=== PATIENT | male | born 1935 | race Caucasian/White ===

== ENCOUNTER 2022-07-23 09:55 | Outpatient (RCR) | payer MEDICARE, SELFPAY | END 2022-08-22 23:59 | disposition home or self-care (01) | LOC: CHSWOUND 09:55 | PROVIDERS: PCP Family Medicine; Visit Provider Nurse Practitioner Acute Care | DX: L89.153 Pressure ulcer of sacral region, stage 3 (principal); E11.621 Type 2 diabetes mellitus with foot ulcer; L97.411 Non-pressure chronic ulcer of right heel and midfoot limited to breakdown of skin; E11.9 Type 2 diabetes mellitus without complications; E66.01 Morbid (severe) obesity due to excess calories; E03.9 Hypothyroidism, unspecified; E04.9 Nontoxic goiter, unspecified; M10.9 Gout, unspecified; N39.42 Incontinence without sensory awareness | CPT/HCPCS: 99213; G0463 ==

== ENCOUNTER 2022-08-09 13:06 | Emergency (ER) | payer MEDICARE, SELFPAY ==
[2022-08-09 13:17] VITALS: BP 105/65; PULSE 86; RESP 18; TEMP 36.8; O2SAT 98
--- NOTE | 2022-08-09 17:22 | ED.GENADULT ---
HPI - General Adult General Chief complaint: Skin/Abscess/Foreign Body Stated complaint: abcess on chest Time Seen by Provider: 08/09/22 17:02 Source: patient and family Mode of arrival: wheelchair Limitations: no limitations History of Present Illness HPI narrative: This is an 87-year-old male with past medical history of diabetes, hypertension presents for chief complaint of skin lesion on Saturday 4 days ago. Sent from his family doctor for further evaluation and treatment of abscess in the ED. reports the lesion is located in the upper right chest and is painful to the touch. There is surrounding redness. otherwise he is in no pain. Denies any fevers, chills. Denies chest pain, shortness of breath, abdominal pain. Related Data Home Medications Medication Instructions Recorded Confirmed allopurinol 300 mg tablet 300 mg PO DAILY 07/16/22 08/09/22 gabapentin 800 mg tablet 800 mg PO BID 07/16/22 08/09/22 glipizide 5 mg tablet 5 mg PO DAILY 07/16/22 08/09/22 methimazole 10 mg tablet 10 mg PO .COMPLEX 07/16/22 08/09/22 simvastatin 20 mg tablet 20 mg PO DAILY 07/16/22 08/09/22 sitagliptin phosphate 100 mg 100 mg PO DAILY 07/16/22 08/09/22 tablet (Januvia) Allergies Allergy/AdvReac Type Severity Reaction Status Date / Time No Known Allergies Allergy Mild Unverified 08/20/16 15:10 Review of Systems Review of Systems: CONSTITUTIONAL: Denies fever, chills, or sweats. EYES: Denies visual changes, redness, or discharge. ENT: Denies rhinorrhea, congestion, sore throat, or otalgia. CARDIOVASCULAR: Denies chest pain, palpitations, or edema. RESPIRATORY: Denies cough or dyspnea. GASTROINTESTINAL: Denies abdominal pain, nausea, vomiting, or diarrhea. GENITOURINARY: Denies dysuria or hematuria. SKIN: Reports skin lesion with surrounding redness. denies rash or itching. MUSCULOSKELETAL: Denies back pain, joint pain, or myalgia. NEUROLOGIC: Denies headache, numbness, dizziness, or weakness. PSYCHIATRIC: Denies anxiety or depression. PMFSH Social History Social History Smoking status: Never smoker Alcohol intake: never Exam Narrative: GENERAL: Well-appearing, well-nourished, and in no acute distress. HEAD: Normocephalic, atraumatic. EYES: PERRLA and EOMI. ENT: Nares clear, no rhinorrhea or epistaxis. Mucous membranes moist. Oropharynx without tonsillar hypertrophy exudate or other lesions. NECK: Supple. No adenopathy or masses. CHEST: No respiratory distress. Clear to auscultation. No wheezes rales or rhonchi HEART: Regular rate and rhythm. No murmur heard. Normal peripheral pulses. ABDOMEN: Soft, nontender, nondistended, normal active bowel sounds. EXTREMITIES: Normal range of motion. No edema. SKIN: 3 cm abscess located in the right upper thorax. There is induration and fluctuance present. Wound is currently draining purulent material during exam. There is surrounding redness and warmth. Tender to palpation in the area. Secondary lesion on the right side of the neck with no surrounding redness, fluctuance, induration, drainage. no other lesions noted. warm, dry, no rash. NEURO: Alert and oriented x3. No focal deficits. PSYCH: Normal mood and affect. Course Vital Signs Vital signs: Vital Signs Temperature 98.2 F 08/09/22 13:17 Pulse Rate 86 08/09/22 13:17 Respiratory Rate 18 08/09/22 13:17 Blood Pressure 105/65 08/09/22 13:17 Pulse Oximetry 98 08/09/22 13:17 Oxygen Delivery Room Air 08/09/22 13:17 Temperature 98.2 F 08/09/22 13:17 Pulse Rate 86 08/09/22 13:17 Respiratory Rate 18 08/09/22 13:17 Blood Pressure 105/65 08/09/22 13:17 Pulse Oximetry 98 08/09/22 13:17 Oxygen Delivery Room Air 08/09/22 13:17 Procedures Abscess I/D chest: Date of Incision: 08/09/22 Time of Incision: 15:45 Side (if applicable): right Local Anesthetic: lidocaine 1% Amount of anesthesia used (mL): 10 Technique: needle aspiration, incised wit
[2022-08-09 18:21] LABS: Basophils Absolute Auto 0.1 K/mm3 (0.0-0.1); Basophils Percent Auto 0.9 % (0.2-1.2); Eosinophils Absolute Auto 0.6 K/mm3 (0-0.3); Eosinophils Percent Auto 7.8 % (0-4.4); Hematocrit 35.3 % (42.0-52.0); Hemoglobin 11.3 g/dL (14.0-18.0); Immature Granulocyte Absolute 0.03 K/mm3 (0.00-0.031); Immature Granulocyte Percent A 0.4 % (0-0.5); Lymphocytes Absolute Auto 1.64 K/mm3 (0.9-3.2); Lymphocytes Percent Auto 19.9 % (18.3-44.2); Mean Corpuscular Hemoglobin 33.7 pg (26-34); Mean Corpuscular Volume 105.4 fl (80-100); Mean Platelet Volume 12.1 fl (7.4-10.4); Monocytes Percent Auto 11.7 % (2.6-8.5); Neutrophils Absolute Auto 4.9 K/mm3 (1.3-6.7); Neutrophils Percent Auto 59.3 % (45.5-73.1); Nucleated Red Blood Cells Perc 0.2 % (0.0-0.2); Platelet Count Result 189 k/mm3 (150-375); Red Blood Count 3.35 M/mm3 (4.6-6.20); White Blood Count 8.2 K/mm3 (4.5-10.0)
[2022-08-09 18:37] LABS: Alanine Aminotransferase 14 U/L (6-50); Albumin Level 3.9 g/dL (3.5-5.1); Alkaline Phosphatase 86 U/L (38-126); Anion Gap 5 mmol/L (8-16); Aspartate Amino Transferase 23 U/L (17-59); Bilirubin,Total 0.6 mg/dL (0.2-1.3); Blood Urea Nitrogen 23 mg/dL (9-20); Carbon Dioxide 32 mmol/L (22-30); Chloride 104 mmol/L (98-107); Estimated CRCL calculation 37 ml/min; Estimated Glomerular Filt Rate 44; Glucose 129 mg/dL (65-110); Potassium 4.7 mmol/L (3.4-5.0); Sodium 141 mmol/L (137-145)
[2022-08-09 18:41] LABS: CRP 2.9 mg/dL (<1.0)
[2022-08-09 18:50] LABS: Platelet Estimate Adequate (Adequate); Schistocytes None Seen (NORMAL)
[2022-08-09 18:51] LABS: Anisocytosis 2+ (NORMAL); Hypochromasia 1+ (NORMAL)
[2022-08-09] MEDS: SULFAMETHOXAZOLE/TRIMETHOPRIM 800/160 MG DS TABLET 1 TAB PO (20:23)
[2022-08-09] MEDS: CEPHALEXIN 500 MG CAPSULE PO (20:23)
[2022-08-09 20:34] VITALS: BP 123/73; PULSE 96; RESP 12; O2SAT 96
== END 2022-08-09 20:37 | disposition home or self-care (01) ==
PROVIDERS: Emergency Provider Physician Assistant; PCP Family Medicine
DX: L02.213 Cutaneous abscess of chest wall (principal); L03.313 Cellulitis of chest wall; I10 Essential (primary) hypertension; E11.9 Type 2 diabetes mellitus without complications; Z79.84 Long term (current) use of oral hypoglycemic drugs
CPT/HCPCS: 10061; 36415; 80053; 85025; 86140; 87070; 87147; 87181; 87186; 87205; 99214; 99283; A9270; G0463; J2704

== ENCOUNTER 2022-08-15 12:29 | Outpatient (RCR) | payer MEDICARE, SELFPAY ==
[2022-08-09 13:38] VITALS: BMI 35.0
== END 2022-10-22 10:54 | disposition home or self-care (01) ==
LOC: ANHWOC 12:29
PROVIDERS: PCP Family Medicine; Visit Provider Family Medicine
DX: L89.90 Pressure ulcer of unspecified site, unspecified stage (principal)
CPT/HCPCS: 87070; 87147; 87181; 87186; 87205; 99214; A9270; G0463

== ENCOUNTER 2023-02-14 14:17 | Inpatient (IN) | payer MEDICARE, SELFPAY ==
[2023-02-14] VITALS (27 sets, daily range): BP systolic 92–112; BP diastolic 48–68; PULSE 83–98; RESP 12–24; TEMP 36.4–36.6; O2SAT 79–100; BMI 36.3
--- NOTE | ~2023-02-14 | US_ITS ---
EXAMINATION: US renal BI DATE: 02/16/2023 13:25 INDICATION: Acute kidney injury TECHNIQUE: Multiple grayscale and Doppler ultrasound images of the kidneys were obtained. COMPARISON: 09/23/2016 FINDINGS: The right kidney measures 9.4 x 4.6 x 3.8 cm. The left kidney measures 8.6 x 4.5 x 3.6 cm. The kidneys demonstrate normal parenchymal echogenicity. There is no hydronephrosis. The bladder is n ormal. IMPRESSION: 1. Moderate atrophy of the kidneys without hydronephrosis. Reviewed, dictated and finalized at location A.
--- NOTE | ~2023-02-14 | CT_ITS ---
EXAMINATION: CT abdomen pelvis w con DATE: 02/14/2023 19:48 INDICATION: Altered mental status TECHNIQUE: Computed tomography (CT) of the abdomen and pelvis was performed with 100 mL Omnipaque-350 intravenous contrast. Automated exposure control and iterative reconstruction technique were employe d. The dose-length product was 1514.06 mGy-cm. COMPARISON: X-ray chest, same date. FINDINGS: Lower thorax: Aortic valve and coronary artery calcification. Bilateral groundglass opacities with a gradient distribution, coarse interstitial opacities in the right lung base, with dependent subsegmen mar atelectasis/consolidation. Calcified right lower lobe granuloma. Symmetric bilateral mild gynecom astia. Liver: Subcentimeter left lobe hypodensity, too small to characterize, likely cyst or hemangioma. 3.7 cm left lobe simple cyst. Biliary/Gallbladder: Cholelithiasis. No bile duct dilation. Pancreas: Moderate fatty atrophy. Scattered coarse calcifications likely indicative of chronic pancre atitis. Spleen: Normal. Adrenals:No mass. Kidneys: Bilateral atrophy. Right midpole hypodensity, too small to characterize but likely represent s a cyst. No hydronephrosis. GI tract: No small or large bowel dilation. Normal appendix. Diverticulosis without diverticulitis. Mesentery/Peritoneum: No ascites, mass, or free air. Retroperitoneum: No mass. Atherosclerotic abdominal aortic and/or arterial calcifications. Pelvis: Wall thickening in a partially distended urinary bladder. Mild prostatomegaly.. Soft Tissues: Uncomplicated fat-containing umbilical hernia. Bones: No acute osseous finding. IMPRESSION: Mild pulmonary edema. Atelectasis/consolidation versus chronic scarring in the right lung base. Cholelithiasis without CT evidence of cholecystitis. Cystitis versus wall thickening from inadequate urinary bladder distention. Otherwise, no acute abdominopelvic process detected. Reviewed, dictated and finalized at location K.
--- NOTE | ~2023-02-14 | MR_ITS ---
MRI of the brain Clinical History: Altered mental status Technique: Axial and sagittal T1-weighted images were acquired. These were followed by axial T2-weigh jordyn, diffusion weighted, gradient, and FLAIR images. Findings: There is no acute infarct, intracranial hemorrhage, or mass lesion. Focal chronic infarct i n the left parietal occipital region. Additional chronic infarct noted in the right cerebellum. There are moderate chronic white matter changes in the periventricular white matter bilaterally. Ventricles and subarachnoid spaces are unremarkable. Orbits are unremarkable. Paranasal sinuses and m astoid air cells are clear. Major intracranial flow voids are grossly intact. Sagittal midline structures appear intact. IMPRESSION: No acute abnormality evident. Focal old infarcts, as detailed above. Moderate chronic microvascular ischemic change. Reviewed, dictated and finalized at location M.
--- NOTE | ~2023-02-14 | XR_ITS ---
EXAM: XR ankle RT min 3V DATE: 02/14/2023 16:34 HISTORY: Right ankle pain . COMPARISON: None available. FINDINGS: Normal mineralization. No fracture or dislocation. No lytic or blastic lesion. Mild scatte red degenerative changes. Achilles and plantar enthesopathy. No erosion or periosteal change. Subcuta neous edema. Considerable soft tissue swelling about the ankle. IMPRESSION: No acute osseous finding in the right ankle. Reviewed, dictated and finalized at location K.
--- NOTE | ~2023-02-14 | CT_ITS ---
EXAMINATION: CT cervical spine wo con DATE: 02/14/2023 16:27 INDICATION: Fall with head injury TECHNIQUE: Computed tomography (CT) of the cervical spine was performed without intravenous contrast. Automated exposure control and iterative reconstruction technique were employed. The dose-length pro duct was 551.53 mGy-cm. COMPARISON: None FINDINGS: Alignment is normal. Severe osteoarthritis at the atlantoaxial articulation. Vertebral body heights a re normal. No fracture. Moderate disc height loss and anterior and posterior fusion across the uncove rtebral and facet joints respectively at C2-C3. Additional moderate disc height loss at C3-C4 and C4- C5 and in the visualized upper thoracic spine. Severe disc height loss at C5-C6 through C7-T1. There is multilevel severe facet and uncovertebral osteoarthritis throughout the cervical spine. Posterior disc osteophyte complexes resulting in multilevel mild central canal stenosis at each of these levels in the cervical spine. Moderate to severe neural foraminal stenosis on the right at C4-C5 with moder ate neural foraminal stenosis on the right at C3-C4 C5-C6 and C6-C7 and on the left at C5-C6 and C6-C 7 with mild neural from stenosis at the remaining cervical levels. Goiter with very large bilateral t hyroid masses which occupy the majority the anterior neck from the thoracic inlet to the level the an gle of the mandibles which has been present since ultrasound for biopsy performed on 02/16/2016 which demonstrated pathology on both sides consistent with benign follicular nodule. IMPRESSION: 1. Severe cervical spondylosis with no acute osseous abnormality. 2. Chronic exceptionally large goiter. Reviewed, dictated and finalized at location L.
--- NOTE | ~2023-02-14 | CT_ITS ---
EXAMINATION: CT brain wo con DATE: 02/14/2023 16:27 INDICATION: Head injury. TECHNIQUE: Computed tomography (CT) of the head was performed without intravenous contrast. The mA wa s adjusted according to patient size. Iterative reconstruction technique was employed. The dose-lengt h product was 681.00 mGy-cm. COMPARISON: None FINDINGS: There are old infarcts in the cerebellum bilaterally. There is an old infarct in right temp oral parietal region. There is an old infarct in left parietal-occipital region. There is an old infa rct in the left basal ganglia and anterior limb left internal capsule. There is an old infarct in rig ht frontal lobe. There is no intracranial hemorrhage, acute infarction, or abnormal intracranial mass lesion. The ventricles are normal in size. The orbits are normal. There is mild mucosal thickening i n the paranasal sinuses. The mastoid air cells are normal. IMPRESSION: 1. Multiple old infarcts in the brain. Reviewed, dictated and finalized at location A.
--- NOTE | ~2023-02-14 | XR_ITS ---
EXAMINATION: XR chest 1V portable DATE: 02/14/2023 17:14 INDICATION: Altered mental status. TECHNIQUE: A single frontal view of the chest was obtained. COMPARISON: Chest 2 views 09/21/2016 FINDINGS: There is no pneumonia, pleural effusion, or pneumothorax. The heart size is normal. Again s een is rightward deviation of the trachea in the superior mediastinum secondary to an intrathoracic g oiter. IMPRESSION: 1. Intrathoracic goiter. Reviewed, dictated and finalized at location A. IMPRESSION: 1. Intrathoracic goiter.
--- NOTE | ~2023-02-14 | XR_ITS ---
EXAM: XR knee RT 3V DATE: 02/14/2023 16:34 HISTORY: Right knee pain . COMPARISON: None available. FINDINGS: Uncomplicated appearing left total knee arthroplasty. Decreased mineralization. No fractur e or dislocation. No lytic or blastic lesion. Moderate volume joint fluid. No erosion or periosteal c hange. Subcutaneous edema. Vascular calcifications. IMPRESSION: No acute osseous finding in the right knee. No radiographic evidence of hardware-related complication. Moderate right knee joint effusion. Reviewed, dictated and finalized at location K. IMPRESSION: No acute osseous finding in the right knee. No radiographic evidenc e of hardware-related complication. Moderate right knee joint effusion.
--- NOTE | 2023-02-14 14:41 | ECG_ITS ---
Measurements Intervals [place] Rate: 91 P: W[place]: 0 QRS: -60 QRSD: 154 T: -11 QT: 369 QTc: 455 Interpretive Statements ATRIAL FIBRILLATION MARKED LEFT AXIS DEVIATION [QRS AXIS < -30] RIGHT BUNDLE BRANCH BLOCK [120+ ms QRS DURATION, UPRIGHT V1, 40+ ms S IN I/aVL/V4/V5/V6] POSSIBLE ANTERIOR MYOCARDIAL INFARCTION , PROBABLY OLD [30 ms Q WAVE IN V3/V4, OR R < 0.2 mV IN V4] NO PREVIOUS ECG AVAILABLE FOR COMPARISON Electronically Signed On 02-15-2023 8:50:22 CDT by Lisbet Chin M.D.
[2023-02-14 15:04] LABS: Basophils Percent Auto 0.2 % (0.2-1.2); Eosinophils Absolute Auto 0.2 K/mm3 (0-0.3); Eosinophils Percent Auto 1.2 % (0-4.4); Hematocrit 31.7 % (42.0-52.0); Hemoglobin 9.9 g/dL (14.0-18.0); Immature Granulocyte Absolute 0.08 K/mm3 (0.00-0.031); Immature Granulocyte Percent A 0.6 % (0-0.5); Lymphocytes Absolute Auto 0.59 K/mm3 (0.9-3.2); Lymphocytes Percent Auto 4.4 % (18.3-44.2); Mean Corpuscular HGB Conc 31.2 g/dl (32-36); Mean Corpuscular Hemoglobin 33.7 pg (26-34); Mean Corpuscular Volume 107.8 fl (80-100); Mean Platelet Volume 12.1 fl (7.4-10.4); Monocytes Percent Auto 7.5 % (2.6-8.5); Neutrophils Absolute Auto 11.5 K/mm3 (1.3-6.7); Neutrophils Percent Auto 86.1 % (45.5-73.1); Platelet Count Result 103 k/mm3 (150-375); Red Blood Count 2.94 M/mm3 (4.6-6.20); Red Cell Distribution Width 16.9 % (11.5-14.5); White Blood Count 13.4 K/mm3 (4.5-10.0)
[2023-02-14 15:16] LABS: Alanine Aminotransferase 20 U/L (6-50); Albumin Level 3.9 g/dL (3.5-5.1); Alkaline Phosphatase 86 U/L (38-126); Anion Gap 4 mmol/L (8-16); Aspartate Amino Transferase 27 U/L (17-59); Bilirubin,Total 0.8 mg/dL (0.2-1.3); Blood Urea Nitrogen 29 mg/dL (9-20); Calcium 8.9 mg/dL (8.4-10.2); Carbon Dioxide 30 mmol/L (22-30); Chloride 102 mmol/L (98-107); Estimated CRCL calculation 36 ml/min; Estimated Glomerular Filt Rate 41; Glucose 247 mg/dL (65-110); Sodium 136 mmol/L (137-145)
[2023-02-14 15:21] LABS: INR 1.2; Prothrombin Time 15.5 Seconds (11.1-14.7)
[2023-02-14 15:22] LABS: Partial Thromboplastin Time 41.1 SECONDS (22.3-36.8)
[2023-02-14 15:26] LABS: Anisocytosis 1+ (NORMAL); Macrocytosis 1+ (NORMAL); Ovalocytes 1+ (NORMAL); Platelet Estimate Decreased (Adequate)
[2023-02-14 15:27] LABS: Schistocytes None Seen (NORMAL)
[2023-02-14] MEDS: MORPHINE SULFATE (*CRX) 2 MG/ML INJ IV PUSH (16:06)
[2023-02-14] MEDS: SODIUM CHLORIDE 0.9% IV 1,000 ML 999 ML IV CONT ×2 (16:07→18:21)
[2023-02-14] MEDS: ONDANSETRON INJ 4 MG/2 ML VIAL IV PUSH (16:07)
--- NOTE | 2023-02-14 16:12 | PC.NURSE ---
This RN noticed on monitor at desk that patient's SpO2 was low 81% with good pleth. RN to bedside to check on patient, pt was awake and responsive. As RN reaching for oxygen tubing, SpO2 dropped to 76%. Family reports pt received morphine recently. Pt placed on 4L NC and SpO2 improved to 94%. Pt's RN notified.
--- NOTE | 2023-02-14 17:24 | ED.AMS ---
HPI - Altered Mental Status General Chief Complaint: Altered Mental Status Stated Complaint: fall yesterday with facial injuries - confusion Time Seen by Provider: 02/14/23 15:15 History of Present Illness HPI narrative: HPI limited due to patient's altered mental status This is an 87-year-old male, past history of paroxysmal A-fib, diabetes, CKD and goiter, who presents emergency department with altered mental status and a fall. Family notes yesterday, the patient fell at home striking his head, with possible loss of consciousness. The patient refused to evaluation at the time. This morning on waking, the family noted the patient appeared confused and hallucinating, which is unusual for him. Related Data Home Medications Medication Instructions Recorded Confirmed allopurinol 300 mg tablet 300 mg PO DAILY 07/16/22 10/08/22 gabapentin 800 mg tablet 800 mg PO BID 07/16/22 10/08/22 glipizide 5 mg tablet 5 mg PO DAILY 07/16/22 10/08/22 methimazole 10 mg tablet 10 mg PO .COMPLEX 07/16/22 10/08/22 Allergies Allergy/AdvReac Type Severity Reaction Status Date / Time No Known Allergies Allergy Mild Verified 02/14/23 14:18 Review of Systems Review of Systems: CONSTITUTIONAL: Denies fever, chills, or sweats. CARDIOVASCULAR: Denies chest pain, palpitations, or edema. RESPIRATORY: Denies cough or dyspnea. GASTROINTESTINAL: Denies abdominal pain, nausea, vomiting, or diarrhea. GENITOURINARY: Denies dysuria or hematuria. SKIN: Denies rash or itching. MUSCULOSKELETAL: Right knee pain, right ankle pain denies back pain, or myalgia. NEUROLOGIC: Headache denies headache, numbness, dizziness, or weakness. PSYCHIATRIC: Denies anxiety or depression. 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 Type 2 diabetes mellitus with foot ulcer Urge incontinence Surgical History Surgical History History of prostate biopsy 1986 History of revision of total replacement of left knee joint 08/29/2016 Status post total knee replacement, bilateral 1995 Social History Social History Smoking status: Never smoker Second hand tobacco smoke exposure: No Alcohol intake: never Substance use: never Substance use type: does not use Lack of Transportation: No Lack of Food: Never True Current Housing: I Have Housing Concerned About Future Housing: No Difficulty Paying Gas/Electric Bills: No Difficulty Paying for Meds: No Currently Unemployed: No Education: High School Diploma/GED Difficulty w/ Childcare or Family Care: No Living arrangements: with family Occupation/Education: retired Gender identity (if verbalized by the patient): Male Sexual Orientation (if Verbalized by the Patient): Straight or Heterosexual Spiritual care concerns: No Exam Narrative: GENERAL: Well-developed, well-nourished, and in no acute distress. HEAD: Multiple ecchymoses are noted scattered across the scalp and face. Raccoon sign noted without Alberts sign. There is no tenderness, step-off or crepitus to palpation. EYES: PERRLA and EOMI. ENT: Nares clear, no rhinorrhea or epistaxis. Mucous membranes moist. Oropharynx without tonsillar hypertrophy exudate or other lesions. Bilateral TMs pearly lowe nonbulging. No noted hemotympanum NECK: Supple. There is a large mass of the right neck that appears consistent with goiter. No caroti
[2023-02-14 18:47] LABS: Appearance Urine Clear (Clear); Bacteria Urine None Seen /hpf; Bilirubin Urine Negative (Negative); Blood Urine Negative (Negative); Color Urine Dark Yellow (Yellow); Glucose Urine UA Trace mg/dL (Negative); Ketones Urine Negative (Negative); Leukocyte Esterase Ur Negative LEU/UL (Negative); Nitrate Urine Negative (Negative); Protein Urine 1+ mg/dL (Negative); RBC Urine 0-2 /hpf (0-2); Specific Grav Ur 1.021 (1.001-1.035); Squamous Epithelial Cell Urine None seen /hpf (Few); WBC Urine 0-5 /hpf; pH Urine 5.5 (5.0-9.0)
[2023-02-14 18:55] LABS: Add Urine Microscopic? YES
[2023-02-14 19:11] LABS: Acetaminophen < 10 ug/mL (10-30); Ethanol < 10 mg/dL (<10); Salicylate < 1.0 mg/dL (2-20)
--- NOTE | 2023-02-14 19:27 | PM.IMHP ---
H&P: HPI History of Present Illness Date/Time: 02/14/23 19:27 Chief Complaint: Falls Narrative: This is an 87-year-old male with past medical history significant for type 2 diabetes mellitus, goiter, chronic kidney disease, chronic stroke, nonhealing right foot ulcer, paroxysmal atrial fibrillation. patient presents to the emergency room after having several falls at home, no loss of consciousness, patient has been very weak most of the history has been obtained from his main caregiver who lives at home with him is his son's girlfriend, did not notice any fevers or chills or rigors however patient has not had any strength to get up on his own and has been using his wheelchair mainly. in emergency room patient had 1 episode of desaturation to 76% requiring supplemental oxygen by nasal cannula 4 L. Preliminary workup was significant for likely right lower lobe infiltrate. Patient has been admitted for further evaluation, management and treatment. EXAMINATION: CT brain wo con DATE: 02/14/2023 16:27 INDICATION: Head injury. TECHNIQUE: Computed tomography (CT) of the head was performed without intravenous contrast. The mA was adjusted according to patient size. Iterative reconstruction technique was employed. The dose-length product was 681.00 mGy-cm. COMPARISON: None FINDINGS: There are old infarcts in the cerebellum bilaterally. There is an old infarct in right temporal parietal region. There is an old infarct in left parietal-occipital region. There is an old infarct in the left basal ganglia and anterior limb left internal capsule. There is an old infarct in right frontal lobe. There is no intracranial hemorrhage, acute infarction, or abnormal intracranial mass lesion. The ventricles are normal in size. The orbits are normal. There is mild mucosal thickening in the paranasal sinuses. The mastoid air cells are normal. IMPRESSION: 1. Multiple old infarcts in the brain. EXAMINATION: XR chest 1V portable DATE: 02/14/2023 17:14 INDICATION: Altered mental status. TECHNIQUE: A single frontal view of the chest was obtained. COMPARISON: Chest 2 views 09/21/2016 FINDINGS: There is no pneumonia, pleural effusion, or pneumothorax. The heart size is normal. Again seen is rightward deviation of the trachea in the superior mediastinum secondary to an intrathoracic goiter. IMPRESSION: 1. Intrathoracic goiter. EXAMINATION: CT abdomen pelvis w con DATE: 02/14/2023 19:48 INDICATION: Altered mental status TECHNIQUE: Computed tomography (CT) of the abdomen and pelvis was performed with 100 mL Omnipaque-350 intravenous contrast. Automated exposure control and iterative reconstruction technique were employed. The dose-length product was 1514.06 mGy-cm. COMPARISON: X-ray chest, same date. FINDINGS: Lower thorax: Aortic valve and coronary artery calcification. Bilateral groundglass opacities with a gradient distribution, coarse interstitial opacities in the right lung base, with dependent subsegmental atelectasis/consolidation. Calcified right lower lobe granuloma. Symmetric bilateral mild gynecomastia. Liver: Subcentimeter left lobe hypodensity, too small to characterize, likely cyst or hemangioma. 3.7 cm left lobe simple cyst. Biliary/Gallbladder: Cholelithiasis. No bile duct dilation. Pancreas: Moderate fatty atrophy. Scattered coarse calcifications likely indicative of chronic pancreatitis. Spleen: Normal. Adrenals:No mass. Kidneys: Bilateral atrophy. Right midpole hypodensity, too small to characterize but likely represents a cyst. No hydronephrosis. GI tract: No small or large bowel dilation. Normal appendix. Diverticulosis without diverticulitis. Mesentery/Peritoneum: No ascites, mass, or free air. Retroperitoneum: No mass. Atherosclerotic abdominal aortic and/or arterial calcifications. Pelvis: Wall thickening in a partially distended urinary bladder. Mild prostatomegaly.. Soft Tissues: Uncomplicated fat-containing umbilical herni
--- NOTE | 2023-02-14 21:30 | ADMGEN ---
This patient, Reji Bashir, was admitted to Medical Room 343-01. Patient/family oriented to hospital policies and general routines including ID bracelet, bed and alarms, visiting hours, pain management, procedures, bathroom and other care routines, personal items, smoking policy, room service/diet, and visiting hours. Information on how to activate the Rapid Response Team has been discussed. Patient/Family are encouraged to report perceived risks to care and to ask questions if they do not understand what they are told or what they should do.
[2023-02-14 22:11] LABS: Glucose Point of Care 125 mg/dl (65-105)
[2023-02-15] VITALS (12 sets, daily range): BP systolic 127–138; BP diastolic 73–93; PULSE 86–126; RESP 16–24; TEMP 36.1–36.6; O2SAT 93–99
--- NOTE | 2023-02-15 | ECHO_ITS ---
Patient Info Name: Reji Bashir Age: 87 years : 1935 Gender: Male Ht: 69 in Wt: 238 lbs BSA: 2.33 m2 HR: 100 bpm BP: 127 / 87 mmHg Technical Quality: Poor Exam Date: 02/15/2023 11:24 AM Exam Location: [facility] Pulmonary Exam Room: 343 Patient Status: Inpatient Admit Date: 02/14/2023 Staff Ordering Physician: Alena Montoya DO Junior Financial Analyst: Carole John RDCS Attending Provider: Nishi Estrada MD Referring Physician: Jan DOUGLAS; Exam Type: CA echo doppler color flow Study Info Indications - AMS S/P FALL AFIB Complete two-dimensional, color flow and Doppler transthoracic echocardiogram is performed with contrast to opacify the left ventricle and to improve the deliniation of the left ventricle endocardial borders. Reason for Poor Study: patient body habitus Summary 1. Technically suboptimal study due to poor sonographic images. 2. Left ventricular chamber dimension is mildly enlarged. 3. Definity contrast administered improved wall motion interpretation. 4. Left ventricular systolic function is normal, estimated at 55-60%. 5. The left ventricular diastolic function is normal. 6. E/e' 9 is minimally elevated. 7. Left atrial chamber dimension is moderately enlarged. 8. Right atrial chamber dimension is severely enlarged. 9. There is moderate aortic valve sclerosis. 10. There is mild aortic valve stenosis with a peak velocity of 168 cm/s, mean gradient of 8 mmHg, and aortic valve area of 2.3 cm2. 11. There is mild tricuspid valve regurgitation. 12. Mild pulmonary hypertension, estimated pulmonary arterial systolic pressure is 42 mmHg. 13. The prox ascending aorta size is moderately dilated at 4.6 cm. Left Ventricle Definity contrast administered improved wall motion interpretation. E/e' 9 is minimally elevated. Left ventricular chamber dimension is mildly enlarged. Left ventricular systolic function is normal, estimated at 55-60%. The left ventricular diastolic function is normal. Technically suboptimal study due to poor sonographic images. Right Ventricle Right ventricular systolic function is normal and with normal TAPSE 2.2 cm. Right ventricular chamber dimension is normal. Left Atria Left atrial chamber dimension is moderately enlarged. Right Atria Right atrial chamber dimension is severely enlarged. Aortic Valve The aortic valve is probable trileaflet. There is moderate aortic valve sclerosis. There is mild aortic valve stenosis with a peak velocity of 168 cm/s, mean gradient of 8 mmHg, and aortic valve area of 2.3 cm2. There is no aortic valve regurgitation. Pulmonic Valve There is no pulmonic regurgitation. Mitral Valve There is no mitral valve stenosis. There is no mitral valve regurgitation. Tricuspid Valve There is mild tricuspid valve regurgitation. Mild pulmonary hypertension, estimated pulmonary arterial systolic pressure is 42 mmHg. Pericardium/Pleural There is no pericardial effusion. Inferior Vena Cava Normal inferior vena cava with >50% collapse upon inspiration consistent with normal right atrial pressure, 5 mmHg. Aorta The prox ascending aorta size is moderately dilated at 4.6 cm. The aortic root size at the sinus of Valsalva is normal. Left Ventricular Outflow Tract Name Value Normal LVOT 2D LVOT Diameter 2.1 cm
[2023-02-15] MEDS: DEXTROSE 5%/0.45% SOD CHL 1,000 ML 65 ML IV CONT ×2 (01:11→20:52)
[2023-02-15] MEDS: ALBUTEROL SULFATE NEB 2.5 MG/3 ML INH (01:58)
--- NOTE | 2023-02-15 03:23 | PC.NURSE ---
Patient upon admission presented with Wounds. Photos were taken and attempted to be uploaded but was unsuccessful. Work order placed and remain on wound camera. 6 Photos collected. 1 a stageable pressure injury.
[2023-02-15] MEDS: cefTRIAXone 2 GM/NS 100 ML 2 GM/100 ML BAG IVPB (03:35)
[2023-02-15 03:50] LABS: Basophils Percent Auto 0.4 % (0.2-1.2); Eosinophils Absolute Auto 0.2 K/mm3 (0-0.3); Eosinophils Percent Auto 2.6 % (0-4.4); Hematocrit 32.6 % (42.0-52.0); Hemoglobin 9.8 g/dL (14.0-18.0); Immature Granulocyte Absolute 0.07 K/mm3 (0.00-0.031); Immature Granulocyte Percent A 0.9 % (0-0.5); Immature Platelet Fraction Pct 11.4 % (0.9-11.2); Lymphocytes Absolute Auto 0.78 K/mm3 (0.9-3.2); Lymphocytes Percent Auto 9.6 % (18.3-44.2); Mean Corpuscular HGB Conc 30.1 g/dl (32-36); Mean Corpuscular Hemoglobin 33.8 pg (26-34); Mean Corpuscular Volume 112.4 fl (80-100); Mean Platelet Volume 11.7 fl (7.4-10.4); Monocytes Percent Auto 11.8 % (2.6-8.5); Neutrophils Absolute Auto 6.1 K/mm3 (1.3-6.7); Neutrophils Percent Auto 74.7 % (45.5-73.1); Platelet Count Result 99 k/mm3 (150-375); Red Cell Distribution Width 17.2 % (11.5-14.5); White Blood Count 8.1 K/mm3 (4.5-10.0)
[2023-02-15] MEDS: AZITHROMYCIN 500 MG/NS 250 ML 500 MG/250 ML BAG 250 MG IVPB (04:00)
[2023-02-15 04:01] LABS: Anion Gap 3 mmol/L (8-16); Anisocytosis 1+ (NORMAL); Blood Urea Nitrogen 28 mg/dL (9-20); Calcium 8.3 mg/dL (8.4-10.2); Carbon Dioxide 28 mmol/L (22-30); Chloride 104 mmol/L (98-107); Estimated CRCL calculation 34 ml/min; Estimated Glomerular Filt Rate 38; Glucose 146 mg/dL (65-110); Hypochromasia 1+ (NORMAL); Macrocytosis 1+ (NORMAL); Platelet Estimate Decreased (Adequate); Potassium 5.8 mmol/L (3.4-5.0); Sodium 135 mmol/L (137-145)
[2023-02-15 04:03] LABS: Basophilic Stippling 1+ (NORMAL); Schistocytes None Seen (NORMAL)
[2023-02-15 04:36] LABS: Iron 40 ug/dL (49-181)
[2023-02-15 04:55] LABS: Percent Iron Saturation 14 % (20-50)
[2023-02-15 08:24] LABS: Glucose Point of Care 145 mg/dl (65-105)
--- NOTE | 2023-02-15 09:41 | PM.IMPN ---
Progress Note: A&P Assessment and Plan (1) Altered mental status: Qualifiers: Altered mental status type: unspecified Qualified Code(s): R41.82 - Altered mental status, unspecified Code(s): R41.82 - Altered mental status, unspecified Status: Acute Assessment and Plan: Check B12, TSH, folate, blood and urine culture, PCT, CRP CTH shows multiple old infarcts Check MRI, concern for new CVA Ddx includes vascular dementia, infection, new CVA/TIA, NPH Check echo (2) Hallucination, visual: Code(s): R44.1 - Visual hallucinations Status: Acute Assessment and Plan: Unsure of etiology, see above (3) Chronic kidney disease: Code(s): N18.9 - Chronic kidney disease, unspecified Status: Acute Assessment and Plan: Appears stable, unknown baseline, monitor (4) 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 breakdown of skin: Code(s): L97.411 - 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 breakdown of skin Status: Acute Assessment and Plan: Wound consult (5) Chronic kidney disease, stage 3b: Code(s): N18.32 - Chronic kidney disease, stage 3b Status: Acute (6) Type 2 diabetes mellitus with foot ulcer: Code(s): E11.621 - Type 2 diabetes mellitus with foot ulcer; L97.509 - Non-pressure chronic ulcer of other part of unspecified foot with unspecified severity Status: Acute Assessment and Plan: Accuchecks, SSI, blood glucose reviewed 02/15 (7) Paroxysmal atrial fibrillation: Code(s): I48.0 - Paroxysmal atrial fibrillation Status: Acute (8) Nontoxic multinodular goiter: Code(s): E04.2 - Nontoxic multinodular goiter Status: Acute (9) Falls: Code(s): W19.XXXA - Unspecified fall, initial encounter Status: Acute Assessment and Plan: PT/OT Plan DVT prophylaxis with SCDs GI prophylaxis not indicated Code status DNR Subjective Date/time seen: 02/15/23 09:41 Interval history: 87-year-old male with history of AFib, diabetes mother comorbidities is presenting with altered mental status as well as a fall with unknown LOC. Unresponsive, somnolent. No events. Review of Systems Review of Systems: 12 point review of systems was assessed and was negative except as noted in the HPI Exam Narrative: General: No acute distress, alert and oriented per baseline HEENT: Atraumatic, normocephalic, mucous membranes moist CV: Regular rate and rhythm, S1, S2 Lungs: Clear to auscultation bilaterally, no rales or crackles noted, no wheezes, good air entry Abdomen: Soft, nontender, nondistended Extremities: Normal to inspection Skin: No rashes noted, no lesions or wounds seen Psych: Euthymic, normal affect Objective Data Vital Signs Vital Signs: Vital Signs - 24 hr 02/14/23 14:35 02/14/23 14:52 02/14/23 15:08 Temperature 97.8 F Pulse Rate 96 Respiratory Rate 20 Blood Pressure 92/48 L 107/66 Pulse Oximetry 95 95 90 Oxygen Delivery Oxygen Flow Rate 02/14/23 15:17 02/14/23 15:30 02/14/23 15:45 Temperature Pulse Rate 92 94 85 Respiratory Rate 17 15 14 Blood Pressure Pulse Oximetry 92 91 90 Oxygen Delivery Oxygen Flow Rate 02/14/23 15:46 02/14/23 16:05 02/14/23 17:01 Temperature Pulse Rate 98 95 95 Respiratory Rate 15 15 16 Blood Pressure 99/61 L 97/64 L Pulse Oximetry 90 79 L 99 Oxygen Delivery Oxygen Flow Rate 02/14/23 17:02 02/14/23 17:15 02/14/23 17:16 Temperature Pulse Rate 88 90 94 Respiratory Rate 19 15 16 Blood Pressure 93/67 L Pulse Oximetry 99 100 100 Oxygen Delivery Oxygen Flow Rate 02/14/23 17:30 02/14/23 17:31 02/14/23 17:48 Temperature Pulse Rate 89 97 93 Respiratory Rate 13 24 H 23 H Blood Pressure 97/63 L Pulse Oximetry 97 97 Oxygen Delivery Oxygen Flow Rate 02/14/23 18:00 02/14/23
[2023-02-15 10:43] LABS: CRP 7.9 mg/dL (<1.0)
[2023-02-15 11:01] LABS: Procalcitonin 0.2 ng/mL
--- NOTE | 2023-02-15 11:14 | PC.NURSE ---
Son and daughter (POA) at bedside and stated to only do accu checks q shift. Cotton Washer educated family that they were schedule ACHS. They are still in agreement to only do q shift.
[2023-02-15] MEDS: PERFLUTREN LIPID MICROSPHERES 1.5 ML VIAL DILUTED TO 10 ML TOTAL VOLUME IV PUSH (11:20)
--- NOTE | 2023-02-15 11:37 | PCOTNOTE ---
Pt currently getting an echo and has a pending MRI. Will continue to follow for OT evaluation.
--- NOTE | 2023-02-15 12:32 | PCSTNOTE ---
Please refer to the Bedside Swallow Evaluation in the EMR. Please note, silent aspiration cannot be ruled out at bedside.
[2023-02-15 12:45] LABS: Alanine Aminotransferase 21 U/L (6-50); Albumin Level 3.7 g/dL (3.5-5.1); Alkaline Phosphatase 90 U/L (38-126); Anion Gap 5 mmol/L (8-16); Aspartate Amino Transferase 28 U/L (17-59); Bilirubin,Total 0.5 mg/dL (0.2-1.3); Blood Urea Nitrogen 29 mg/dL (9-20); Calcium 8.2 mg/dL (8.4-10.2); Carbon Dioxide 28 mmol/L (22-30); Chloride 106 mmol/L (98-107); Estimated CRCL calculation 36 ml/min; Estimated Glomerular Filt Rate 41; Glucose 139 mg/dL (65-110); Potassium 5.4 mmol/L (3.4-5.0); Sodium 139 mmol/L (137-145)
[2023-02-15] MEDS: SCOPOLAMINE 1.5 MG PATCH TRANSDERM (13:29)
[2023-02-15 13:51] LABS: Folic Acid 3.6 ng/mL (2.76->20)
[2023-02-15] MEDS: ATROPINE SULFATE 1% OPHTH SOLN 5 ML BOTTLE SUBLINGUAL (13:56)
--- NOTE | 2023-02-15 14:09 | PCOTNOTE ---
Attempted to see pt for OT evaluation however pt is currently very lethargic, would not wake to sternal rubs except to say what and then fall back to sleep. Pt is not able to safely participate in therapy at this time. Will continue to follow.
[2023-02-15 21:54] LABS: Glucose Point of Care 143 mg/dl (65-105)
--- NOTE | 2023-02-15 22:21 | ECG_ITS ---
Measurements Intervals [place] Rate: 115 P: NC: 0 QRS: -16 QRSD: 176 T: -10 QT: 368 QTc: 510 Interpretive Statements ATRIAL FIBRILLATION WITH RAPID VENTRICULAR RESPONSE INDETERMINATE AXIS RIGHT BUNDLE BRANCH BLOCK [120+ ms QRS DURATION, UPRIGHT V1, 40+ ms S IN I/aVL/V4/V5/V6] POSSIBLE ANTERIOR MYOCARDIAL INFARCTION , OF INDETERMINATE AGE [30 ms Q WAVE IN V3/V4, OR R < 0.2 mV IN V4] POSSIBLE INFERIOR INFARCTION, AGE UNDETERMINED ABNORMAL ECG COMPARED TO ECG 02/14/2023 14:52:49 NO SIGNIFICANT CHANGES Electronically Signed On 02-16-2023 12:39:56 CDT by Lino Donaldson M.D.
--- NOTE | 2023-02-15 22:49 | PC.NURSE ---
At 2224 a EKG was obtained on our patient showing A-Fib with RVR with rates in the 120's. The patient is currently in a transition period of the family determining if they are wanting to make the patient Hospice with comfort measures. The POA Madison was notified of what we would need to do to help correct the abnormal heart rhythm and the POA decline for us to proceed. Continue with managing the patients comfort at time and when the family is all present on 02/16/2023 we will make our decision on Hospice determination. Dr. Barton who was present for the phone call was updated and made aware.
[2023-02-16] VITALS (9 sets, daily range): BP systolic 90–122; BP diastolic 55–74; PULSE 105–129; RESP 18–24; TEMP 36.9–37.1; O2SAT 89–100
[2023-02-16] MEDS: ATROPINE SULFATE 1% OPHTH SOLN 5 ML BOTTLE SUBLINGUAL ×2 (01:18→22:27)
[2023-02-16] MEDS: cefTRIAXone 2 GM/NS 100 ML 2 GM/100 ML BAG IVPB (01:18)
[2023-02-16] MEDS: AZITHROMYCIN 500 MG/NS 250 ML 500 MG/250 ML BAG 250 MG IVPB (02:16)
[2023-02-16 06:20] LABS: Basophils Percent Auto 0.3 % (0.2-1.2); Eosinophils Percent Auto 0.1 % (0-4.4); Hemoglobin 10.1 g/dL (14.0-18.0); Immature Granulocyte Absolute 0.32 K/mm3 (0.00-0.031); Immature Granulocyte Percent A 2.7 % (0-0.5); Lymphocytes Percent Auto 2.5 % (18.3-44.2); Mean Corpuscular HGB Conc 28.9 g/dl (32-36); Mean Corpuscular Hemoglobin 33.9 pg (26-34); Mean Corpuscular Volume 117.4 fl (80-100); Mean Platelet Volume 11.5 fl (7.4-10.4); Monocytes Absolute Auto 1.1 K/mm3 (0.1-0.6); Monocytes Percent Auto 9.2 % (2.6-8.5); Neutrophils Absolute Auto 10.1 K/mm3 (1.3-6.7); Neutrophils Percent Auto 85.2 % (45.5-73.1); Nucleated Red Blood Cells Perc 0.3 % (0.0-0.2); Platelet Count Result 124 k/mm3 (150-375); Red Blood Count 2.98 M/mm3 (4.6-6.20); Red Cell Distribution Width 17.2 % (11.5-14.5); White Blood Count 11.9 K/mm3 (4.5-10.0)
[2023-02-16 06:36] LABS: Alanine Aminotransferase 25 U/L (6-50); Albumin Level 3.8 g/dL (3.5-5.1); Alkaline Phosphatase 87 U/L (38-126); Anion Gap 3 mmol/L (8-16); Aspartate Amino Transferase 31 U/L (17-59); Bilirubin,Total 0.6 mg/dL (0.2-1.3); Blood Urea Nitrogen 36 mg/dL (9-20); Calcium 8.3 mg/dL (8.4-10.2); Carbon Dioxide 26 mmol/L (22-30); Chloride 105 mmol/L (98-107); Estimated CRCL calculation 27 ml/min; Estimated Glomerular Filt Rate 30; Glucose 183 mg/dL (65-110); Potassium 6.4 mmol/L (3.4-5.0); Sodium 134 mmol/L (137-145)
[2023-02-16 06:43] LABS: Macrocytosis 1+ (NORMAL); Platelet Estimate Decreased (Adequate); Schistocytes None Seen (NORMAL)
[2023-02-16] MEDS: SODIUM BICARBONATE 8.4% 50 MEQ/50 ML SYRINGE IV PUSH ×2 (08:07→18:44)
[2023-02-16] MEDS: CALCIUM GLUC 1,000 MG/NS 50 ML 1,000 MG/50 ML BAG 100 MG IVPB (08:18)
[2023-02-16 08:25] LABS: Glucose Point of Care 199 mg/dl (65-105)
--- NOTE | 2023-02-16 09:45 | PM.IMPN ---
Progress Note: A&P Assessment and Plan (1) Altered mental status: Qualifiers: Altered mental status type: unspecified Qualified Code(s): R41.82 - Altered mental status, unspecified Code(s): R41.82 - Altered mental status, unspecified Status: Acute Assessment and Plan: Check B12, TSH, folate, PCT--all wnl, CRP 7.9 Blood cx 02/15 NGTD CTH shows multiple old infarcts, MRI shows no acute infarcts, multiple old and chronic infarcts Ddx includes vascular dementia, infection, new CVA/TIA, NPH Echo from 02/15 showed an EF of 55-60% with severely enlarged atrial chambers and mild pulmonary hypertension (2) Hallucination, visual: Code(s): R44.1 - Visual hallucinations Status: Acute Assessment and Plan: Unsure of etiology, see above (3) 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 breakdown of skin: Code(s): L97.411 - 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 breakdown of skin Status: Acute Assessment and Plan: Wound consult (4) Type 2 diabetes mellitus with foot ulcer: Code(s): E11.621 - Type 2 diabetes mellitus with foot ulcer; L97.509 - Non-pressure chronic ulcer of other part of unspecified foot with unspecified severity Status: Acute Assessment and Plan: Accuchecks, SSI, blood glucose reviewed 02/16 (5) Paroxysmal atrial fibrillation: Code(s): I48.0 - Paroxysmal atrial fibrillation Status: Acute (6) Nontoxic multinodular goiter: Code(s): E04.2 - Nontoxic multinodular goiter Status: Acute (7) Falls: Code(s): W19.XXXA - Unspecified fall, initial encounter Status: Acute Assessment and Plan: PT/OT (8) RONNI (acute kidney injury): Code(s): N17.9 - Acute kidney failure, unspecified Status: Acute Assessment and Plan: Worsening, give gentle IVF hydration, monitor Consult to nephrology pending (9) Hyperkalemia: Code(s): E87.5 - Hyperkalemia Status: Acute Assessment and Plan: D/t RONNI, give calcium gluconate, sodium bicarb, reassess Plan Hospice consult pending DVT prophylaxis with SCDs GI prophylaxis not indicated Code status DNR Subjective Date/time seen: 02/16/23 09:45 Interval history: 87-year-old male with history of AFib, diabetes mother comorbidities is presenting with altered mental status as well as a fall with unknown LOC. Unresponsive, somnolent. No events. Review of Systems Review of Systems: ROS unobtainable: Yes unobtainable due to mental status Exam Narrative: General: Unresponsive HEENT: Atraumatic, normocephalic, mucous membranes moist CV: Regular rate and rhythm, S1, S2 Lungs: Coarse BS, diminished at bases Abdomen: Soft, nontender, nondistended Extremities: Normal to inspection Skin: No rashes noted, no lesions or wounds seen Psych: Unable to assess Objective Data Vital Signs Vital Signs: Vital Signs - 24 hr 02/15/23 12:00 02/15/23 14:00 02/15/23 16:00 Temperature 97.0 F L Pulse Rate 100 113 H 126 H Respiratory Rate 16 Blood Pressure 138/93 H Pulse Oximetry 99 Oxygen Delivery Oxygen Flow Rate 02/15/23 20:09 02/15/23 20:00 02/15/23 20:00 Temperature 97.6 F Pulse Rate 123 H 117 H 117 H Respiratory Rate 22 H Blood Pressure 130/73 Pulse Oximetry 93 97 Oxygen Delivery Nasal Cannula Oxygen Flow Rate 4.5 02/16/23 00:00 02/16/23 05:04 02/16/23 04:00 Temperature 98.5 F Pulse Rate 129 H 119 H 105 H Respiratory Rate 24 H Blood Pressure 90/55 L Pulse Oximetry 100 Oxygen Delivery Oxygen Flow Rate Intake/Output Intake/Output: Intake & Output 02/13/23 02/14/23 02/15/23 02/16/23 23:59 23:59 23:59 23:59 Intake Total 1000 1350 Output Total 200 550 200 Balance 800 800 -200 Meds/Results Medications: Active Medications Generic Name Dose Route Start Last Admin T
--- NOTE | 2023-02-16 10:04 | PCOTNOTE ---
Consulted with RN about completing OT eval. RN reports that patient is not appropriate at this time due to current status. RN is putting in d/c orders and states that they can re submit orders when in more stable condition.
--- NOTE | 2023-02-16 11:11 | PCPTNOTE ---
RN states that pt is not appropriate for PT at this time; she will discuss with pt and obtain d/c orders
[2023-02-16 11:39] LABS: Anion Gap 1 mmol/L (8-16); Blood Urea Nitrogen 40 mg/dL (9-20); Calcium 8.4 mg/dL (8.4-10.2); Carbon Dioxide 28 mmol/L (22-30); Chloride 105 mmol/L (98-107); Estimated CRCL calculation 25 ml/min; Estimated Glomerular Filt Rate 27; Glucose 196 mg/dL (65-110); Potassium 6.3 mmol/L (3.4-5.0); Sodium 134 mmol/L (137-145)
--- NOTE | 2023-02-16 12:01 | PM.CNNEP ---
Assessment and Plan Assessment and plan (1) RONNI (acute kidney injury): Code(s): N17.9 - Acute kidney failure, unspecified Status: Acute Assessment and Plan: etiology? check urine studies and renal ultrasound trial of IVFs follow trend of repeat labs and UOP (2) Chronic kidney disease, stage 3b: Code(s): N18.32 - Chronic kidney disease, stage 3b Status: Chronic Assessment and Plan: has had some degree of renal insufficiency since as far back as 2017 baseline creatinine runs around 1.5 - 1.8mg/dl presumably due to diabetes, vascular disease, and age-related change (3) Hyperkalemia: Code(s): E87.5 - Hyperkalemia Status: Acute Assessment and Plan: partly related to RONNI/ARF however, seems out of proportion to degree of RONNI/AK r/o hemolysis - check LDH and haptoglobin r/o osbtruction - check renal ultrasound check TTKG medical management K+ follow repeat K+ levels (4) Altered mental status: Qualifiers: Altered mental status type: unspecified Qualified Code(s): R41.82 - Altered mental status, unspecified Code(s): R41.82 - Altered mental status, unspecified Status: Acute Assessment and Plan: related to RONNI/ARF??? brain imaging (CT and MRI) noted rule out infection continue supportive therapy (5) Type 2 diabetes mellitus with diabetic chronic kidney disease: Code(s): E11.22 - Type 2 diabetes mellitus with diabetic chronic kidney disease Status: Chronic Assessment and Plan: follow accu-cheks glycemic control per hospitalists I will continue to follow the patient with you while he remains hospitalized and make further recommendations as needed. Thank you for allowing me to participate in care this patient History of Present Illness Reason for Consult Consult date: 02/16/23 Reason for consult: acute renal failure (on chronic kidney disease) and hyperkalemia Chief Complaint Chief complaint: altered mental status History of Present Illness Narrative: All the history that I obtained is from review of the electronic records as well as discussion with the physician/nurses involved in the patient care as well as history from the patient's family who was at bedside at the time my evaluation as the patient is unable provide any meaningful history due to his altered mental status. The patient is an 87-year-old male with this past medical history as outlined below who presented to [facility] Emergency room for further evaluation of altered mental status. According to his family, the patient has had several falls at home but initially refused evaluation in the emergency room. reportedly, he did hit his head but did not lose consciousness. On the morning of admission, when he woke up from bed, his family noticed that he seemed a bit more confused than baseline. Over the course of day, his mental status continued to fluctuate and eventually deteriorated to the point where he was hallucinating. It was at this time that his family brought him to the emergency room for further assessment. Workup and evaluation emergency room demonstrated the patient to be hemodynamically stable but he apparently had fluctuating issues with hypoxia and required supplemental oxygen to get his oxygen saturations greater than 90%. Family reports no overt fevers, chills, nausea, vomiting, diarrhea, abdominal pain or any other subjective symptoms other than the aforementioned falls. Routine blood test demonstrated chronic anemia that appears to be at his baseline with a mildly elevated white blood cell count of 13. His chemistries also demonstrated an elevated creatinine of 1.6 mg/dL which also appears to be at his baseline. No other critical electrolyte abnormalities were noted. Subsequent imaging including a CT scan of his head C-spine and x-rays were negative for any type of intracranial lesion or mass, fractures, or
[2023-02-16] MEDS: SODIUM CHLORIDE 0.9% IV 1,000 ML 75 ML IV CONT (12:48)
[2023-02-16 14:06] LABS: Anion Gap 8 mmol/L (8-16); Blood Urea Nitrogen 39 mg/dL (9-20); Calcium 8.4 mg/dL (8.4-10.2); Carbon Dioxide 28 mmol/L (22-30); Chloride 104 mmol/L (98-107); Creatine Kinase 73 U/L (55-170); Estimated CRCL calculation 24 ml/min; Estimated Glomerular Filt Rate 26; Glucose 186 mg/dL (65-110); Lactate Dehydrogenase 140 U/L (120-246); Potassium 6.2 mmol/L (3.4-5.0); Sodium 140 mmol/L (137-145)
--- NOTE | 2023-02-16 14:21 | PC.NURSE ---
Addendum entered by Ele Wan RN 02/16/23 14:58: Natural Resources Faculty Member has reached out to Nephrology to make aware and report third critical potassium of 6.2 - left message at 1438 Original Note: The patients potassium level has been at critical level today. Nephrology suggested additional treatment that would require patient being moved to IMU. The POAMadison was notified along with additional siblings at bedside and stated they did not want to pursue any treatment that required patient to be moved to a different floor. Family stated to provide care that would provide the most comfort to the patient at this time pending Hospice consult.
[2023-02-16 15:57] LABS: Creatinine Urine 140.6 mg/dL; Total Protein Urine Random 32 mg/dL; Ur Ttl Prot Creatinine Ratio 0.23 mg/mg (0-0.20); Urea Random Urine 535 MG/DL
[2023-02-16 15:59] LABS: Potassium Urine Random 65.4 meq/L; Sodium Urine Random 26 meq/L
[2023-02-16 16:21] LABS: Eosinophil Urine None Seen % (None Seen); Urine Eos QC 2nd Tech Confirmed
--- NOTE | 2023-02-16 18:35 | PC.NURSE ---
Mask Designer spoke with Dr Galicia by phone at 1832 regarding administering IV Insulin as part of hyperkalemia protocol. IV insulin cannot be administered on medical floor and family does not wish for the patient to transfer to IMU at this time. Telephone order to not administer the dextrose or insulin were given by Dr Galicia. .See MAR for medications administered.
--- NOTE | 2023-02-16 19:43 | PC.NURSE ---
Everardo RN and medical underwriter met with family at bedside at 1930 and family expressed desire to make patient comfort care only until they meet with summer child caregiver and Hospice tomorrow.
[2023-02-16 20:54] LABS: Anion Gap 6 mmol/L (8-16); Blood Urea Nitrogen 45 mg/dL (9-20); Calcium 8.4 mg/dL (8.4-10.2); Carbon Dioxide 28 mmol/L (22-30); Chloride 105 mmol/L (98-107); Estimated CRCL calculation 24 ml/min; Estimated Glomerular Filt Rate 26; Glucose 142 mg/dL (65-110); Potassium 5.9 mmol/L (3.4-5.0); Sodium 139 mmol/L (137-145)
[2023-02-16] MEDS: MORPHINE SULFATE (*CRX) 2 MG/ML INJ IV PUSH (22:31)
[2023-02-17] MEDS: cefTRIAXone 2 GM/NS 100 ML 2 GM/100 ML BAG IVPB (00:58)
[2023-02-17] MEDS: AZITHROMYCIN 500 MG/NS 250 ML 500 MG/250 ML BAG 250 MG IVPB (01:50)
[2023-02-17 05:05] VITALS: BP 111/62; PULSE 125; RESP 22; TEMP 36.6; O2SAT 94
[2023-02-17] MEDS: MORPHINE SULFATE (*CRX) 2 MG/ML INJ IV PUSH ×3 (05:19→20:29)
[2023-02-17 08:00] VITALS: BP 109/62; PULSE 113; RESP 20; TEMP 36.6; O2SAT 95
--- NOTE | 2023-02-17 08:27 | PCOTNOTE ---
Spoke with RN regarding OT evaluation. RN reports pt may be going hospice and therapy is not appropriate. RN states she will put in d/c orders.
[2023-02-17 09:54] VITALS: O2SAT 91
[2023-02-17] MEDS: SODIUM CHLORIDE 0.9% IV 1,000 ML 75 ML IV CONT (09:54)
--- NOTE | 2023-02-17 11:15 | PM.PNNEP ---
Progress Note: A&P Assessment and Plan (1) RONNI (acute kidney injury): Code(s): N17.9 - Acute kidney failure, unspecified Status: Acute (2) Chronic kidney disease, stage 3b: Code(s): N18.32 - Chronic kidney disease, stage 3b Status: Chronic (3) Hyperkalemia: Code(s): E87.5 - Hyperkalemia Status: Acute (4) Altered mental status: Qualifiers: Altered mental status type: unspecified Qualified Code(s): R41.82 - Altered mental status, unspecified Code(s): R41.82 - Altered mental status, unspecified Status: Acute (5) Type 2 diabetes mellitus with diabetic chronic kidney disease: Code(s): E11.22 - Type 2 diabetes mellitus with diabetic chronic kidney disease Status: Chronic Plan family has decided to transition care to comfort care measure due ongoing and progressive decline in clinical status (worsening hypoxia, RONNI/ARF on CKD, hyperkalemia, not improvement in mental status, not eating or drinking...etc). Hospice referral/consultaiton pending Will sign off. Subjective Date/time seen: 02/17/23 11:15 Interval history: Follow-up for acute kidney injury/acute renal failure on chronic kidney disease and hyperkalemia. Several rounds of medical therapy (IV calcium gluconate, IV sodium bicarbonate, rectally kayexalate) with minimal improvement in K+ level (unable to give IV insulin due to [facility] protocols); no change in altered mental status/encephalopathy; patient requested comfort care measure late yesterday evening (with no further medication admistration or testing); hospice referral/consultation pending at this time. Exam Narrative: Deferred Objective Data Vital Signs Vital Signs: Vital Signs Temp Pulse Resp BP Pulse Ox O2 Del Method O2 Flow Rate 02/17/23 08:00 97.8 F 113 H 20 109/62 95 02/17/23 09:54 91 High Flow Nasal Cannula 10 02/17/23 05:05 97.9 F 125 H 22 H 111/62 94 02/16/23 20:20 120 H 89 L High Flow Nasal Cannula 11 02/16/23 20:21 98.8 F 124 H 22 H 112/68 02/16/23 16:00 120 H Intake/Output Intake/Output: Intake & Output 08/04/2902/15/23 02/16/23 02/17/23 23:59 23:59 23:59 23:59 Intake Total 1000 6037 447 3376 Output Total 200 550 200 450 Balance 800 800 150 900 Meds/Results Medications: Active Medications Generic Name Dose Route Start Last Admin Trade Name Freq PRN Reason Stop Dose Admin Albuterol 2.5 mg 02/15/23 01:39 Albuterol Sulfate Neb 2.5 Mg/3 Ml Inh INHALATION Q6HRT PRN Shortness Of Breath Allopurinol 300 mg 02/15/23 08:00 02/17/23 07:42 Allopurinol 300 Mg Tablet PO Not Given DAILY@0800 [facility] Atropine Sulfate 1 - 2 drop 02/15/23 12:21 02/16/23 22:27 Atropine Sulfate 1% Ophth Soln 5 Ml Bottle SUBLINGUAL 2 drop Q4H PRN Administration Secretions Dextrose 12.5 gm 02/14/23 19:34 Dextrose 50% 25 Gm/50 Ml Syringe IV PUSH PRN PRN Hypoglycemia Protocol Glucagon 1 mg 02/14/23 19:34 Glucagon For Inj 1 Mg Vial IM PRN PRN Hypoglycemia Protocol Glucose 15 gm 02/14/23 19:34 Glucose Oral Gel 15 Gm Of Glucse In 37.5 Gm Tube PO PRN PRN Hypoglycemia Protocol Dextrose 1,000 mls @ 100 mls/hr 02/14/23 19:34 Dextrose 5% 1,000 Ml IVPB PRN PRN Hypoglycemia Protocol Ceftriaxone Sodium 2 gm in 100 mls @ 200 mls/hr 02/15/23 02:00 02/17/23 01:28 Rocephin 2 Gm/Ns 100 Ml IVPB Infused Q24H BRIAN Infusion Azithromycin 500 mg in 250 mls @ 250 mls/hr 02/15/23 02:00 02/17/23 02:50 Zithromax IVPB Infused Q24H BRIAN Infusion Sodium Chloride 1,000 mls @ 75 mls/hr 02/16/23 09:50 02/17/23 09:54 Normal Saline Iv IV CONT 75 mls/hr .[id number] BRIAN Administration Insulin Aspart 5 units 02/15/23 08:00 02/17/23 13:14 Insulin Aspart (*Bkc) 100 Units/Ml 0.05 units/kg (5 units) Not Given SUB-Q [facility] Insulin Glargine 16
--- NOTE | 2023-02-17 11:46 | PM.IMPN ---
Progress Note: A&P Assessment and Plan (1) Altered mental status: Qualifiers: Altered mental status type: unspecified Qualified Code(s): R41.82 - Altered mental status, unspecified Code(s): R41.82 - Altered mental status, unspecified Status: Acute Assessment and Plan: Check B12, TSH, folate, PCT--all wnl, CRP 7.9 Blood cx 02/15 NGTD CTH shows multiple old infarcts, MRI shows no acute infarcts, multiple old and chronic infarcts Ddx includes vascular dementia, infection, new CVA/TIA, NPH Echo from 02/15 showed an EF of 55-60% with severely enlarged atrial chambers and mild pulmonary hypertension (2) Hallucination, visual: Code(s): R44.1 - Visual hallucinations Status: Acute Assessment and Plan: Unsure of etiology, see above (3) 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2 - Nontoxic multinodular goiter Status: Acute (7) Falls: Code(s): W19.XXXA - Unspecified fall, initial encounter Status: Acute Assessment and Plan: PT/OT (8) RONNI (acute kidney injury): Code(s): N17.9 - Acute kidney failure, unspecified Status: Acute Assessment and Plan: Consult to nephrology appreciated Cr stable at 2.3-2.4, recheck 02/17 pending (9) Hyperkalemia: Code(s): E87.5 - Hyperkalemia Status: Acute Assessment and Plan: D/t RONNI, give calcium gluconate, sodium bicarb, improved Repeat 02/17 pending Plan Hospice consult pending DVT prophylaxis with SCDs GI prophylaxis not indicated Code status DNR Subjective Date/time seen: 02/17/23 11:46 Interval history: 87-year-old male with history of AFib, diabetes mother comorbidities is presenting with altered mental status as well as a fall with unknown LOC. More responsive, opens eyes to voice, occasionally tries to speak. No overnight events. No fevers. Review of Systems Review of Systems: 12 point review of systems was assessed and was negative except as noted in the HPI ROS unobtainable: Yes unobtainable due to mental status Exam Narrative: General: Unresponsive HEENT: Atraumatic, normocephalic, mucous membranes moist CV: Regular rate and rhythm, S1, S2 Lungs: Coarse BS, diminished at bases Abdomen: Soft, nontender, nondistended Extremities: Normal to inspection Skin: No rashes noted, no lesions or wounds seen Psych: Unable to assess Objective Data Vital Signs Vital Signs: Vital Signs - 24 hr 02/16/23 12:00 02/16/23 14:00 02/16/23 16:00 Temperature 98.5 F Pulse Rate 116 H 107 H 120 H Respiratory Rate 18 Blood Pressure 122/74 Pulse Oximetry 94 Oxygen Delivery Oxygen Flow Rate 02/16/23 20:21 02/16/23 20:20 02/17/23 05:05 Temperature 98.8 F 97.9 F Pulse Rate 124 H 120 H 125 H Respiratory Rate 22 H 22 H Blood Pressure 112/68 111/62 Pulse Oximetry 89 L 94 Oxygen Delivery High Flow Nasal Cannula Oxygen Flow Rate 11 02/17/23 09:54 02/17/23 08:00 Temperature 97.8 F Pulse Rate 113 H Respiratory Rate 20 Blood Pressure 109/62 Pulse Oximetry 91 95 Oxygen Delivery High Flow Nasal Cannula Oxygen Flow Rate 10 Intake/Output Intake/Output: Intake & Output 02/14/23 02/15/23 02/16/23 02/17/23 23:59 23:59
[2023-02-17 12:41] LABS: Basophils Percent Auto 0.3 % (0.2-1.2); Eosinophils Percent Auto 0.1 % (0-4.4); Hematocrit 31.3 % (42.0-52.0); Hemoglobin 9.3 g/dL (14.0-18.0); Immature Granulocyte Absolute 0.14 K/mm3 (0.00-0.031); Immature Granulocyte Percent A 1.1 % (0-0.5); Lymphocytes Absolute Auto 0.47 K/mm3 (0.9-3.2); Lymphocytes Percent Auto 3.7 % (18.3-44.2); Mean Corpuscular HGB Conc 29.7 g/dl (32-36); Mean Corpuscular Hemoglobin 33.6 pg (26-34); Mean Platelet Volume 11.2 fl (7.4-10.4); Monocytes Absolute Auto 1.9 K/mm3 (0.1-0.6); Monocytes Percent Auto 14.7 % (2.6-8.5); Neutrophils Absolute Auto 10.2 K/mm3 (1.3-6.7); Neutrophils Percent Auto 80.1 % (45.5-73.1); Nucleated Red Blood Cells Perc 0.2 % (0.0-0.2); Platelet Count Result 120 k/mm3 (150-375); Red Blood Count 2.77 M/mm3 (4.6-6.20); Red Cell Distribution Width 16.8 % (11.5-14.5); White Blood Count 12.8 K/mm3 (4.5-10.0)
[2023-02-17 12:52] LABS: Alanine Aminotransferase 23 U/L (6-50); Albumin Level 3.3 g/dL (3.5-5.1); Alkaline Phosphatase 73 U/L (38-126); Anion Gap 2 mmol/L (8-16); Aspartate Amino Transferase 34 U/L (17-59); Bilirubin,Total 0.5 mg/dL (0.2-1.3); Blood Urea Nitrogen 49 mg/dL (9-20); Calcium 8.4 mg/dL (8.4-10.2); Carbon Dioxide 27 mmol/L (22-30); Chloride 107 mmol/L (98-107); Estimated CRCL calculation 24 ml/min; Estimated Glomerular Filt Rate 26; Glucose 125 mg/dL (65-110); Potassium 5.2 mmol/L (3.4-5.0); Sodium 136 mmol/L (137-145)
[2023-02-17 13:12] LABS: Anisocytosis 1+ (NORMAL); Hypochromasia 1+ (NORMAL); Macrocytosis 1+ (NORMAL); Platelet Estimate Decreased (Adequate); Schistocytes None Seen (NORMAL)
--- NOTE | 2023-02-17 13:13 | PCPTNOTE ---
PT eval not completed due to decline with pt and family is considering Hospice; RN will obtain d/c orders.
[2023-02-17 20:00] VITALS: BP 110/72; PULSE 117; RESP 22; TEMP 36.6; O2SAT 97
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
--- NOTE | 2023-02-18 09:04 | PM.DS ---
DS: Admitting Diagnosis Discharge Date 02/17/23 Admitting Diagnosis somnolent DS: Discharge Diagnosis Discharge Diagnosis (1) History of completed stroke: Code(s): Z86.73 - Personal history of transient ischemic attack (TIA), and cerebral infarction without residual deficits Status: Acute (2) Altered mental status: Qualifiers: Altered mental status type: unspecified Qualified Code(s): R41.82 - Altered mental status, unspecified Code(s): R41.82 - Altered mental status, unspecified Status: Acute (3) RONNI (acute kidney injury): Code(s): N17.9 - Acute kidney failure, unspecified Status: Acute (4) Nontoxic multinodular goiter: Code(s): E04.2 - Nontoxic multinodular goiter Status: Acute (5) Type 2 diabetes mellitus with diabetic chronic kidney disease: Code(s): E11.22 - Type 2 diabetes mellitus with diabetic chronic kidney disease Status: Chronic (6) Paroxysmal atrial fibrillation: Code(s): I48.0 - Paroxysmal atrial fibrillation Status: Acute (7) 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 breakdown of skin: Code(s): L97.411 - 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 breakdown of skin Status: Acute (8) Type 2 diabetes mellitus with foot ulcer: Code(s): E11.621 - Type 2 diabetes mellitus with foot ulcer; L97.509 - Non-pressure chronic ulcer of other part of unspecified foot with unspecified severity Status: Acute (9) Hallucination, visual: Code(s): R44.1 - Visual hallucinations Status: Acute (10) Falls: Code(s): W19.XXXA - Unspecified fall, initial encounter Status: Acute (11) Hyperkalemia: Code(s): E87.5 - Hyperkalemia Status: Acute DS: Summary Hospital Course Hospital Course: 87-year-old male with history of AFib, diabetes mother comorbidities is presenting with altered mental status as well as a fall with unknown LOC. CTH shows multiple old infarcts, MRI shows no acute infarcts, multiple old and chronic infarcts Ddx includes vascular dementia, infection, new CVA/TIA, NPH Echo from 02/15 showed an EF of 55-60% with severely enlarged atrial chambers and mild pulmonary hypertension Patient requires significant care for comfort and was transferred to inpatient hospice. Time Spent with Patient Time attestation: Total time spent providing and/or coordinating discharge services: DS: Data Data Completed and Pending Labs on day of discharge: Labs from last 24 hours 02/17/23 02/17/23 12:27 12:26 WBC 12.8 H RBC 2.77 L Hgb 9.3 L Hct 31.3 L MCV 113.0 H MCH 33.6 MCHC 29.7 L RDW 16.8 H Plt Count 120 L MPV 11.2 H Immature Gran % (Auto) 1.1 H Neut % (Auto) 80.1 H Lymph % (Auto) 3.7 L [place] % (Auto) 14.7 H Eos % (Auto) 0.1 Baso % (Auto) 0.3 Lymph # (Auto) 0.47 L [place] # (Auto) 1.9 H Eos # (Auto) 0.0 Baso # (Auto) 0.0 Abs Immat Gran (auto) 0.14 H Absolute Neuts (auto) 10.2 H Absolute Nucleated RBC 0.0 Nucleated RBC % 0.2 Platelet Estimate Decreased Hypochromasia 1+ Anisocytosis 1+ Macrocytosis 1+ Schistocytes None seen Sodium 136 L Potassium 5.2 H Chloride 107 Carbon Dioxide 27 Anion Gap 2 L BUN 49 H Creatinine 2.40 H Estim Creat Clear Calc 24 Estimated GFR 26 L Glucose 125 H Calcium 8.4 Total Bilirubin 0.5 AST 34 ALT 23 Alkaline Phosphatase 73 Total Protein 7.0 Albumin 3.3 L Preliminary micro results at discharge 02/15/23 03:33 Blood Culture - Preliminary Blood 02/15/23 03:33 Blood Culture - Preliminary Blood Discharge Plan Discharge Consulting providers: Willy Galicia Patient Disposition: Hospice [facility] Inpatient Date of admission: 02/16/23 11:34 Primary Care Provider: Ervin Calles Admitting Provider: Nishi Estrada V. Attending physician on admission: Nishi Estrada V. Con
[2023-02-19 09:01] LABS: Methylmalonic Acid 689 nmol/L (87-318)
[2023-02-20 00:23] LABS: Myoglobin, Urine <27 mcg/L (<28)
[2023-02-20 13:23] LABS: Osmolality, Urine 523 mOsm/kg (50-1200)
[2023-02-20 20:45] LABS: Red Blood Cell Folate 550 ng/mL RBC (>280)
[2023-02-21 10:24] LABS: Haptoglobin 104 mg/dL (43-212)
== END 2023-02-17 20:32 | disposition hospice, inpatient (51) | DRG 948 ==
LOC: ANHED 19:49 → ANH3MED 20:57
PROVIDERS: Internal Medicine Nephrology; Admitting Provider Internal Medicine; Emergency Provider Preventive Medicine Aerospace Medicine; PCP Family Medicine; Visit Provider Student in an Organized Health Care Education/Training Program
DX: R41.82 Altered mental status, unspecified (principal); N17.9 Acute kidney failure, unspecified; L97.411 Non-pressure chronic ulcer of right heel and midfoot limited to breakdown of skin; E11.22 Type 2 diabetes mellitus with diabetic chronic kidney disease; E04.2 Nontoxic multinodular goiter; F01.50 Vascular dementia, unspecified severity, without behavioral disturbance, psychotic disturbance, mood disturbance, and anxiety; I48.0 Paroxysmal atrial fibrillation; E11.621 Type 2 diabetes mellitus with foot ulcer; R44.1 Visual hallucinations; E87.5 Hyperkalemia; N18.32 Chronic kidney disease, stage 3b; J43.9 Emphysema, unspecified; E78.5 Hyperlipidemia, unspecified; W19.XXXA Unspecified fall, initial encounter; I71.20 Thoracic aortic aneurysm, without rupture, unspecified; Z66 Do not resuscitate; E05.90 Thyrotoxicosis, unspecified without thyrotoxic crisis or storm; N39.41 Urge incontinence; Z96.653 Presence of artificial knee joint, bilateral; E66.9 Obesity, unspecified; Z68.36 Body mass index [BMI] 36.0-36.9, adult; Z86.73 Personal history of transient ischemic attack (TIA), and cerebral infarction without residual deficits
CPT/HCPCS: 36415; 70450; 70551; 71045; 72125; 73562; 73610; 74177; 76775; 80048; 80053; 80307; 81001; 81050; 82533; 82550; 82570; 82607; 82746; 82747; 82948; 83010; 83540; 83550; 83615; 83874; 83921; 83930; 83935; 84133; 84145; 84156; 84300; 84443; 84540; 85025; 85055; 85610; 85730; 85999; 86140; 87040; 92610; 93005; 94640; 96361; 96374; 96375; 99285; A9270; C8929; G0378; J0456; J0612; J0696; J2270; J2405; J7030; Q9957; Q9967

== ENCOUNTER 2023-02-17 20:33 | HOS | payer OTHER, MEDICARE, SELFPAY ==
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
[2023-02-17 21:24] VITALS: PULSE 122; RESP 16
[2023-02-17] MEDS: MORPHINE 50 MG/NS 100ML (*CRX) 50 MG/100 ML BAG IV CONT (21:24)
[2023-02-18 02:39] VITALS: O2SAT 92
--- NOTE | 2023-02-18 05:11 | PCDIET ---
0220 PATIENT FOUND WITHOUT BP, PULSE, RESPIRATIONS, OR CORNEAL REFLEX.
--- NOTE | 2023-02-18 05:17 | PC.NURSE ---
BODY TO [facility] PER CART
--- NOTE | 2023-02-18 16:46 | PM.DDS ---
Discharge Summary Date and Time Date of : 02/18/23 Time of : 02:20 Provider Pronounced By: LUIS MCFARLAND RN Probable Cause of Probable Cause of : Respiratory failure with hypoxia due to aspiration due to dysphagia due to multiple cerebral infarcts Summary Hospital Course: Admitted inpatient hospice due to dyspnea discomfort and restlessness. Medications titrated to comfort. Mr. Bashir peacefully. Additional Data Confirmation of as documented by pronouncing clinician: Pupillary Reflex, Palpable Pulses, Response to Stimuli and Heart Tones Name of Provider Notified: HANNAH PIERCE Time Provider Notified: 03:17 Provider Requests Autopsy: No Family Requests Autopsy: No Workforce Development Program Director Notified: Yes Date [facility] Notified of : 02/18/23 Time [facility] Notified of : 02:41
== END 2023-02-18 02:20 | disposition expired | DRG 951 ==
PROVIDERS: Admitting Provider Internal Medicine; PCP Family Medicine; Visit Provider Internal Medicine
DX: Z51.5 Encounter for palliative care (principal); J96.01 Acute respiratory failure with hypoxia; N17.9 Acute kidney failure, unspecified; R41.82 Altered mental status, unspecified; I69.391 Dysphagia following cerebral infarction; R13.10 Dysphagia, unspecified; T17.990A Other foreign object in respiratory tract, part unspecified in causing asphyxiation, initial encounter; E04.2 Nontoxic multinodular goiter; E11.22 Type 2 diabetes mellitus with diabetic chronic kidney disease; N18.32 Chronic kidney disease, stage 3b; Z96.653 Presence of artificial knee joint, bilateral; I48.0 Paroxysmal atrial fibrillation; I71.20 Thoracic aortic aneurysm, without rupture, unspecified; E78.5 Hyperlipidemia, unspecified; J43.9 Emphysema, unspecified; E11.621 Type 2 diabetes mellitus with foot ulcer; Z87.891 Personal history of nicotine dependence
CPT/HCPCS: J2270